=== PATIENT | female | born 1990 | race Caucasian/White ===

== ENCOUNTER → 2017-03-26 | Outpatient (CLI) | payer BC ==
[~2017-03-26] MED LIST: PYRI200T4 PO; SULF-154 PO; Z.0.NO CURRENT MEDS
== END ==
LOC: HPND 09:50
PROVIDERS: ATTEND Obstetrics & Gynecology
DX: Z36 Encounter for antenatal screening of mother (principal); O34.211 Maternal care for low transverse scar from previous cesarean delivery; Z3A.13 13 weeks gestation of pregnancy
CPT/HCPCS: 36416; 76813

== ENCOUNTER → 2017-05-05 | Outpatient (CLI) | payer BC | LOC: HPND 07:55 | PROVIDERS: ATTEND Obstetrics & Gynecology | DX: O35.8XX0 Maternal care for other (suspected) fetal abnormality and damage, not applicable or unspecified (principal); O34.212 Maternal care for vertical scar from previous cesarean delivery; Z3A.00 Weeks of gestation of pregnancy not specified | CPT/HCPCS: 76805 ==